=== PATIENT | male | born 1945 | race Caucasian/White ===

== ENCOUNTER → 2018-09-21 06:22 | Outpatient (CLI) | payer MEDICARE, SELFPAY ==
[2018-09-03 10:11] VITALS: BMI 23.2
--- NOTE | 2018-09-21 18:44 | STRESSREP ---
Stress Test Report Date: 09-19 Procedure: Exercise tolerance test/imaging study Indications: Shortness of breath/dyspnea on exertion Consent: Per the patient Procedure: The patient exercised on a Kang protocol for 6 minutes completing Stage II achieving a peak heart rate of 137 bpm (93 % predicted maximal heart rate) with a peak blood pressure 200/70 mmHg and a peak MET capacity of 7 METs. The baseline ECG demonstrated sinus bradycardia . The peak exercise ECG demonstrated no obvious ECG changes . There was a rare PVC during exercise and recovery and an occasional PAC and during recovery . The functional capacity was considered average . There was no complaint of chest discomfort during exercise or recovery. The examination was discontinued secondary to dysrhythmia . Impression: 1. Technically adequate (percent predicted maximal heart rate greater than 85%) exercise tolerance test 2. Peak exercise ECG with no obvious ECG changes 3. There was a rare PVC during exercise and recovery and an occasional PAC during recovery 4. Nuclear images pending Myocardial perfusion imaging study: Technique: The patient was injected with 11.8 mCi of technetium 99m Cardiolite and subsequently rest SPECT Cardiolite nuclear imaging was obtained in the horizontal long, vertical long, and short axis views. The patient exercised on a Kang protocol for 6 minutes completing Stage II achieving a peak heart rate of 137 bpm (93 % predicted maximal heart rate) with a peak blood pressure 200/70 mmHg and a peak MET capacity of 7 METs. The patient was injected with 33.3 mCi of technetium 99m Cardiolite and subsequently stress SPECT Cardiolite nuclear imaging was obtained in the horizontal long, vertical long, and short axis views. A gated Cardiolite study at peak stress was obtained. Interpretation: Rest and stress SPECT Cardiolite nuclear imaging status post realignment, normalization, and attenuation correction, demonstrates the appearance of relative uniform tracer uptake and myocardial perfusion appearing within normal limits. There is end systolic thickening and brightening. The gated Cardiolite study demonstrates myocardial thickening and inward wall motion. The reported LVEF is 70 %. Impression: 1. Rest and stress SPECT Cardiolite nuclear imaging demonstrate relative uniform tracer uptake and myocardial perfusion appearing within normal limits. 2. The gated Cardiolite study reports an LVEF of 70 %. This note was generated with [employer] software. It may contain incorrect words, spelling, and punctuation that were not noted in checking the note before signing.
--- NOTE | 2018-09-21 18:49 | STRESSREP_ITS ---
Stress Test Report Date: 09-19 Procedure: Exercise tolerance test/imaging study Indications: Shortness of breath/dyspnea on exertion Consent: Per the patient Procedure: The patient exercised on a Kang protocol for 6 minutes completing Stage II achieving a peak heart rate of 137 bpm (93 % predicted maximal heart rate) with a peak blood pressure 200/70 mmHg and a peak MET capacity of 7 METs. The baseline ECG demonstrated sinus bradycardia . The peak exercise ECG demonstrated no obvious ECG changes . There was a rare PVC during exercise and recovery and an occasional PAC and during recovery . The functional capacity was considered average . There was no complaint of chest discomfort during exercise or recovery. The examination was discontinued secondary to dysrhythmia . Impression: 1. Technically adequate (percent predicted maximal heart rate greater than 85%) exercise tolerance test 2. Peak exercise ECG with no obvious ECG changes 3. There was a rare PVC during exercise and recovery and an occasional PAC during recovery 4. Nuclear images pending Myocardial perfusion imaging study: Technique: The patient was injected with 11.8 mCi of technetium 99m Cardiolite and subsequently rest SPECT Cardiolite nuclear imaging was obtained in the horizontal long, vertical long, and short axis views. The patient exercised on a Kang protocol for 6 minutes completing Stage II achieving a peak heart rate of 137 bpm (93 % predicted maximal heart rate) with a peak blood pressure 200/70 mmHg and a peak MET capacity of 7 METs. The patient was injected with 33.3 mCi of technetium 99m Cardiolite and subsequently stress SPECT Cardiolite nuclear imaging was obtained in the horizontal long, vertical long, and short axis vi ews. A gated Cardiolite study at peak stress was obtained. Interpretation: Rest and stress SPECT Cardiolite nuclear imaging status post realignment, normalization, and attenuation correction, demonstrates the appearance of relative uniform tracer uptake and myocardial perfusion appearing within normal limits. There is end systolic thickening and brightening. The gated Cardiolite study demonstrates myocardial thickening and inward wall motion. The reported LVEF is 70 %. Impression: 1. Rest and stress SPECT Cardiolite nuclear imaging demonstrate relative uniform tracer uptake and myocardial perfusion appearing within normal limits. 2. The gated Cardiolite study reports an LVEF of 70 %. This note was generated with [employer] software. It may contain incorrect words, spelling, and punctuation that were not noted in checking the note before signing.
== END ==
PROVIDERS: Family Provider Internal Medicine; PCP Internal Medicine; Referring Provider Internal Medicine Cardiovascular Disease; Visit Provider Internal Medicine Cardiovascular Disease
DX: I25.2 Old myocardial infarction (principal); I10 Essential (primary) hypertension; I20.1 Angina pectoris with documented spasm
CPT/HCPCS: 78452; 93017; A9500; A4216

== ENCOUNTER 2019-01-08 03:38 | Emergency (ER) | payer MEDICARE, SELFPAY ==
[2018-09-03 10:11] VITALS: BMI 23.2
[2019-01-08 03:38] VITALS: BP 147/90; PULSE 85; RESP 17; TEMP 37.1; O2SAT 97; BMI 22.5
--- NOTE | 2019-01-08 04:01 | CT_ITS ---
STUDY: CT ABDOMEN AND PELVIS WITHOUT CONTRAST REASON FOR EXAM: Male, 73 years old. Abdominal pain mid x10 days, constipation, no appetite. Nausea. History of CT, hypertension, bronchitis, COPD, emphysema. RADIATION DOSAGE (If Supplied By Facility): CTDIvol = ( 6.54 ) mGy, DLP = ( 352.94 ) mGycm TECHNIQUE: Transaxial 2.5 mm images were obtained from the dome of the diaphragm to the symphysis pubis with oral contrast, and without intravenous contrast. Sagittal and coronal images were reconstructed. This examination is limited for the evaluation of gastrointestinal, solid organs and vascular structures due to the lack of intravenous and oral contrast. Individualized dose optimization techniques were used for this CT. COMPARISON: CT chest 10/07/2015 FINDINGS: Scarring in the left base, mild bronchiectasis bilaterally, increased opacification/compression off parenchyma with probable atelectatic changes. The visualized portions of the heart are within normal limits. Normal liver. Normal gallbladder and extrahepatic biliary system. Normal spleen. Pancreas head appears enlarged, its contour is indistinct, there is peripancreatic fat stranding. The adjacent duodenal contour is indistinct. Normal bilateral adrenal glands. Small right kidney. Mild calyectasis. Left extrarenal pelvis. There is no left obstructive uropathy, left renal or ureteral calculi. Oral contrast is reaching the ileocecal valve and ascending colon. Normal visualized stomach. Normal small intestine. There are multiple colonic diverticula consistent with diverticulosis. The appendix is visualized and appears normal. Image [id number] series 2. There is atherosclerosis of the abdominal aorta, greater branches and pelvic arteries without aneurysm or leak. Normal inferior vena cava. Normal retroperitoneum. Distended urinary bladder. There is enlargement of the prostate gland. Normal abdominal wall. There are diffuse degenerative changes of the visualized spine and bilateral hip joints. CT/Abdomen/Pel W ORAL Cont Only IMPRESSION: Acute pancreatitis without complication suspected. There is no appendicitis, abscess, collection, perforation or obstruction. Right renal involution, atherosclerosis, fecal stasis, diverticulosis and degenerative changes felt to be not acute findings. These findings were discussed on the telephone with Dr. Tang at 6:15 hrs. EST on 01/08/2019. Electronically Signed: Yu Duvall MD at 6:18 EDT , Service support ,
[2019-01-08 04:20] LABS: Bacteria 0 SEEN /hpf (None Seen); Mucous, Urine 0 SEEN /hpf (<or=2+); Red Blood Cells-Urine 0 SEEN /hpf (0-5); White Blood Cells 0 SEEN /hpf (0-5)
[2019-01-08 04:23] LABS: Color, Urine Yellow (Yellow); Glucose, Dipstick Normal (Normal); Ketone-Dipstick Negative (Negative); Leukocyte Esterase-Dipstick Negative /ul (Negative); Nitrite-Dipstick Negative (Negative); Occult Blood-Urine Negative /ul (Negative); Protein-Dipstick Negative (Negative); Specific Gravity, Urine 1.015 (1.002-1.030); Urine Bilirubin Dipstick Negative (Negative); Urine Clarity Clear (Clear); Urine Urobilinogen Normal (Normal)
[2019-01-08 04:27] LABS: Absolute Lymphocyte Count 1.41 X10^3/ul (0.83-4.51); Absolute Neutrophil Count 5.7 X10^3/uL (2.0-7.7); Basophil# 0.03 X10^3/uL; Basophil% 0.4 % (0-1); Eosinophil# 0.08 X10^3/uL; Hematocrit 40.2 % (40-54); Hemoglobin 13.4 g/dl (13.0-16.5); Lymphocyte # 1.41 X10^3/ul (4.0); Lymphocyte % 17.6 % (19-41); Mean Corp Hgb Conc 33.3 g/gl (32-36); Mean Corpuscular Hgb 29.8 pg (27.0-32.0); Mean Corpuscular Volume 89.3 fL (80-94); Monocyte# 0.77 X10^3/uL; Monocyte% 9.6 % (0-10); Neutrophil # 5.65 X10^3/uL (2.7-7.7); Neutrophil % 70.5 % (47-70); Platelet Count 309 K/mm3 (150-450); RBC Distribution Width CV 13.2 % (11.6-14.6); RBC Distribution Width SD 42.7 fl (35.1-43.9)
[2019-01-08] MEDS: Ondansetron 4 MG/2 ML Vial IV (04:28)
[2019-01-08] MEDS: Morphine 4 MG/ML Syringe IV (04:28)
[2019-01-08] MEDS: 0.9% Normal Saline 1,000 ML 1000 ML IV (04:28)
[2019-01-08 04:31] LABS: POSITIVE COUNT NO; POSITIVE DIFFERENTIAL NO; POSITIVE MORPHOLOGY NO
[2019-01-08 04:32] LABS: Squamous Epithelial Cells - UA 0-5 SEEN /hpf (0-5)
[2019-01-08 04:41] LABS: ALB/GLOB Ratio 0.9 RATIO (0.9-2.4); AST(SGOT) 16 U/L (15-37); Alanine Aminotransfer ALT/SGPT 22 U/L (16-61); Albumin, Serum 3.6 g/dL (3.2-5.0); Alkaline Phosphatase 90 U/L (45-117); Anion Gap 10 (5-15); BUN 49 mg/dL (7-18); BUN/Creat Ratio 27.8 RATIO (10-20); Calcium,Total 9.7 mg/dL (8.5-10.1); Chloride 109 mmol/L (98-107); Creatinine, Serum 1.76 mg/dL (0.70-1.30); EST Glomerular Filtration Rate 41 mL/min (>60); Est Glom Filt Rate - Afr Amer 49 mL/min (>60); Estimated Creatinine Clearance 42.09 ml/min; Globulin 4.2 g/dL (2.2-4.2); Glucose 116 mg/dL (74-106); Lipase 221 U/L (73-393); Potassium 4.7 mmol/L (3.5-5.1); Protein, Total 7.8 g/dL (6.4-8.2); Sodium Level 140 mmol/L (136-145)
[2019-01-08 05:38] VITALS: BP 140/92; PULSE 82; RESP 17; O2SAT 97
--- NOTE | 2019-01-08 06:55 | ED.VISSUMM ---
- ER Visit Summary Date of Service: 01/08/19 Chief Complaint: Abdominal pain History of Present Illness: The patient is a 73 M who presents with abdominal pain. It initially began about 5 days ago. It is sharp. He currently rates it as severe. He has nausea without vomiting. No diarrhea. No urinary symptoms. He has had some constipation. He reports chills. His last bowel movement was yesterday. Physical Examination: Afebrile vitals unremarkable No distress Heart regular rate and rhythm Lungs are clear Abdomen soft nondistended he does have epigastric abdominal tenderness without guarding without rebound Alert Test Results: CBC CMP lipase urinalysis notable only for BUN [address] the abdomen and pelvis was read as acute pancreatitis. There are findings of an enlarged pancreatic head with indistinct contour and peripancreatic fat stranding. Emergency Department Course and Treatment: Patient was given IV fluids morphine Zofran. On reevaluation his pain is completely resolved. His CT findings were concerning for pancreatitis however lipase is normal. With enlarged pancreatic head I would also be worried about potential malignancy. I discussed options with the patient including hospitalization for further work-up, imaging, labs versus close outpatient follow-up. The patient is the caregiver for his . He will prefer to go home. I do not think this is unreasonable given that his symptoms are well controlled at this point. I did speak to Dr. Park who is covering for the patient's primary care physician to also advise them of findings here and need for outpatient follow-up. Patient does understand to return for new or worsening symptoms and was instructed on specific signs and symptoms to monitor for and was discharged. Treatment Plan: [] Disposition: Discharge Impression: Abdominal pain Abnormal CT of the abdomen This note was generated with [employer] software. It may contain incorrect words, spelling, and punctuation that were not noted in review of the chart prior to signing ED Disposition - Plan for ED Patient: Referrals: Kallie Snider MD [Primary Care Provider] -
--- NOTE | 2019-01-08 06:58 | ED.DEP ---
ED Disposition - Plan for ED Patient: Instructions: ED Abdominal Pain Unkn Cause Male Referrals: Kallie Snider MD [Primary Care Provider] -
[2019-01-08] MEDS: HYDROcodone Bitartrate/Apap 5/325 Tablet PO (07:15)
[2019-01-08 07:16] VITALS: RESP 18
== END 2019-01-08 07:21 | disposition home or self-care (01) ==
PROVIDERS: Emergency Provider Emergency Medicine; Family Provider Internal Medicine; PCP Internal Medicine
DX: R10.13 Epigastric pain (principal); R93.5 Abnormal findings on diagnostic imaging of other abdominal regions, including retroperitoneum; R11.0 Nausea; K59.00 Constipation, unspecified; R68.83 Chills (without fever); I25.10 Atherosclerotic heart disease of native coronary artery without angina pectoris; I25.2 Old myocardial infarction; J44.9 Chronic obstructive pulmonary disease, unspecified; I10 Essential (primary) hypertension; E78.00 Pure hypercholesterolemia, unspecified; Z79.899 Other long term (current) drug therapy
CPT/HCPCS: 74176; 80053; 81001; 83690; 85025; 96361; 96374; 96375; 99284; A4216; J2405

== ENCOUNTER → 2019-01-14 | Outpatient (CLI) | payer MEDICARE, SELFPAY ==
[2019-01-08 03:38] VITALS: BMI 22.5
[2019-01-14 13:20] LABS: Amylase 99 U/L (25-115); Lipase 196 U/L (73-393)
== END | disposition home or self-care (01) ==
LOC: LABSPEC 13:00
PROVIDERS: Family Provider Internal Medicine; PCP Internal Medicine; Referring Provider Internal Medicine; Visit Provider Internal Medicine
DX: K85.90 Acute pancreatitis without necrosis or infection, unspecified (principal); R10.9 Unspecified abdominal pain
CPT/HCPCS: 82150; 83690